=== PATIENT | female | born 1965 | race Caucasian/White ===

== ENCOUNTER 2018-01-09 21:02 | Emergency (ER) | payer SELFPAY ==
[~2018-01-09] VITALS: Ht 167.6 cm; Wt 81.2 kg
[2018-01-09 21:11] VITALS: BP 133/69; PULSE 80; RESP 18; TEMP 98.4; O2SAT 99
--- NOTE | 2018-01-09 22:03 | PD ---
HPI Chief Complaint: Injury Time Seen by Provider: 21:21 Travel History International Travel<30 days: No Contact w/Intl Traveler<30days: No Traveled to known affect area: No History of Present Illness HPI 52-year-old white female presents emergency department with complaints of right foot pain over the past month. She states that she works on her feet at [employer]. She moved from [facility] 3 months ago. She states that she has fibromyalgia but does not take any medications. She states that she is not sure whether she had broken her foot although she has had no trauma. The pain is diffuse across the forefoot. She has some relief of discomfort with elevation and immobilization worsened when she stands and walks. She denies any acute sensory loss. No recent illness or trauma. Pain is mild but can be moderate with activity. History Past Medical Histgory Narrative Medical Fibromyalgia Tetanus Vaccination: < 5 Years Past Surgical History Narrative Surgical Multiple orthopedic surgeries Social History Alcohol Use: No Tobacco Use: Yes Allergies-Medications (Allergen,Severity, Reaction): Coded Allergies: No Known Allergies (Unverified , 01/09/18) Review of Systems General / Constitutional: No: Fever Eyes: No: Visual changes HENT: No: Headaches Cardiovascular: No: Chest Pain or Discomfort Respiratory: No: Shortness of Breath Gastrointestinal: No: Abdominal Pain Genitourinary: No: Dysuria Musculoskeletal: Positive: Arthralgias, Limited ROM, Pain, No: Weakness, Edema Skin: No Rash Neurologic: No: Weakness Psychiatric: No: Depression Endocrine: No: Polydipsia Hematologic/Lymphatic: No: Easy Bruising Physical Exam Narrative GENERAL: This is a well-nourished, well-developed patient, in no apparent distress. SKIN: No rashes, ecchymoses or lesions. Warm and dry. HEAD: Atraumatic. Normocephalic. EYES: PERRL, EOMI, no discharge or injection. No scleral icterus. EARS: Clear NOSE: Nasal turbinates appear normal. THROAT: Mucosa pink and moist. Airway patent. NECK: Trachea midline. supple, moves head freely. LUNGS: Clear to auscultation. CV: Regular in rhythm. ABDOMEN: Soft nontender. EXT: No clubbing cyanosis or edema. Examination of the right lower extremity reveals tenderness across the proximal forefoot into the distal forefoot. There is no erythema, warmth or edema. She has intact sensation with good distal pulses. No pain in the toes, heel, Achilles. She does complain of some mild discomfort across the plantar surface of the foot into the arch. Patient is able to bear weight at bedside and ambulates with a mildly antalgic gait. There is no pain in the ankle, knee, hip. The left lower extremity as well as upper extremities are without localizing bony tenderness or deformity. Data Data Last Documented VS Vital Signs Date Time Temp Pulse Resp B/P (MAP) Pulse Ox O2 Delivery O2 Flow Rate FiO2 01/09/18 21:11 98.4 80 18 133/69 (90) 99 [facility] Medical Screen Exam Complete: Yes Emergency Medical Condition: No Differential Diagnosis MDM: High Differential diagnoses: Fracture, sprain, strain, dislocation, contusion, neurovascular injury, arthritis, gout Narrative Course A medical screening exam was performed: At the time of evaluation the presenting medical condition was determined not to be of an emergent nature. The patient was given the option of receiving additional care, but declined. Patient was given options for additional community resources from which to obtain care. The Patient Has Been advised to seek medical attention for their presenting complaint. The patient has been advised to return to the ER at any time if an emergent condition develops. Primary Impression: Encounter for medical screening examination Condition: Jacob Merrill January 09, 2018 22:03
== END 2018-01-09 22:18 | disposition left against medical advice (07) ==
LOC: NEPD 21:02
DX: M79.671 Pain in right foot (principal)
CPT/HCPCS: 99281